=== PATIENT | female | born 1925 | race Caucasian/White ===

== ENCOUNTER 2016-09-03 16:46 | Inpatient (IN) | payer OTHER ==
[~2016-09-03] VITALS: Ht 149.9 cm; Wt 37.2 kg
[~2016-09-03 16:46] MED LIST: ANT12.5 PO; CALCIUM-600600 MG PO; COL100 PO; CROMOLYN SODIUM10 ML OP; DEC150 PO; ECO81 PO; FLUTICASON0.05 MG/Ac; KEFLEX500 MG PO; LAC PO; OMEPRAZOLE40 M1 PO; OSCD PO; PRI20 PO; PROAIR HFA0.09 MG/A1 INH; RISEDRONATE SO150 MG PO; SOD1 PO; SYMBICORT1 AE2 INH; TRA50 PO; TRAMADOL50 M1 PO; VENLAFAXINE HYD75 M1 PO
[2016-09-03 17:20] LABS: BASOPHIL % 0.4 % (0-2); PLATELET COUNT 392 x10^3mcL (130-400)
[2016-09-03 17:21] LABS: RED CELL DISTRIBUTION WIDTH 15.5 % (11.5-14.5)
[2016-09-03 17:26] LABS: CALCIUM 8.1 mg/dL (8.5-10.1); CARBON DIOXIDE 30.4 mmol/L (21-32); CHLORIDE SERUM 95 mmol/L (98-107); CREATININE SERUM 0.8 mg/dL (0.6-1.0); GLUCOSE SERUM 122 mg/dL (74-106); SODIUM SERUM 132 mmol/L (136-145)
[2016-09-03 17:33] LABS: ALBUMIN 3.3 g/dL (3.4-5.0); ALKALINE PHOSPHATASE 126 U/L (46-116); ALT/SGPT 77 U/L (14-59); AST/SGOT 121 U/L (15-37); BILIRUBIN TOTAL 0.4 mg/dL (0.20-1.00); TOTAL PROTEIN, SERUM 6.6 g/dL (6.4-8.2)
[2016-09-03] MEDS ORDERED: LASIX20 MG (17:37)
[2016-09-03] MEDS ORDERED: MIRTAZAPINE15 M2 (17:38)
[2016-09-03] MEDS ORDERED: CARVEDILOL3.125 M1 (17:38)
[2016-09-03] MEDS ORDERED: EFFEXOR-XR37.5 MG (17:38)
[2016-09-03 18:13] LABS: HDL CHOLESTEROL 35 mg/dL (40-60)
[2016-09-03 18:15] LABS: CHOLESTEROL 86 mg/dL (<200)
[2016-09-03 18:32] LABS: UA SPECIFIC GRAVITY 1.015 (1.005-1.035); microscopic required? YES; urine erythrocyte 2+ (NEGATIVE)
[2016-09-03 19:30] LABS: MAGNESIUM 2.2 mg/dL (1.8-2.4); PHOSPHOROUS 3.7 mg/dL (2.5-4.9)
[2016-09-03 19:34] LABS: CHOLESTEROL/HDL RATIO 2.5
[2016-09-03 19:44] LABS: FREE T4 1.21 ng/dL (0.76-1.46); FREE THYROXINE INDEX 3.6 ug/dL (1.4-4.5); T4(THYROXINE) 9.6 ug/dL (4.7-13.3)
[2016-09-03 19:58] LABS: T3 TOTAL 0.97 ng/mL
[2016-09-03 20:07] VITALS: BP 132/74
[2016-09-03 20:10] VITALS: Ht 149.9 cm; Wt 37.2 kg
[2016-09-04] VITALS (7 sets, daily range): BP systolic 110–132; BP diastolic 54–74
[2016-09-04 06:31] LABS: BASOPHIL % 0.6 % (0-2); PLATELET COUNT 352 x10^3mcL (130-400)
[2016-09-04 06:36] LABS: RED CELL DISTRIBUTION WIDTH 15.6 % (11.5-14.5)
[2016-09-04 07:11] LABS: CALCIUM 8.3 mg/dL (8.5-10.1); CARBON DIOXIDE 31.4 mmol/L (21-32); CHLORIDE SERUM 99 mmol/L (98-107); CREATININE SERUM 0.7 mg/dL (0.6-1.0); GLUCOSE SERUM 87 mg/dL (74-106); MAGNESIUM 2.2 mg/dL (1.8-2.4); PHOSPHOROUS 4.2 mg/dL (2.5-4.9); POTASSIUM SERUM 4.8 mmol/L (3.5-5.1); SODIUM SERUM 137 mmol/L (136-145)
[2016-09-05] VITALS (10 sets, daily range): BP systolic 114–134; BP diastolic 55–87
[2016-09-05 07:10] LABS: BASOPHIL % 1.1 % (0-2); PLATELET COUNT 373 x10^3mcL (130-400)
[2016-09-05 07:42] LABS: CARBON DIOXIDE 34.7 mmol/L (21-32); CHLORIDE SERUM 98 mmol/L (98-107); CREATININE SERUM 0.7 mg/dL (0.6-1.0); GLUCOSE SERUM 83 mg/dL (74-106); MAGNESIUM 2.2 mg/dL (1.8-2.4); PHOSPHOROUS 3.6 mg/dL (2.5-4.9); POTASSIUM SERUM 4.5 mmol/L (3.5-5.1); SODIUM SERUM 134 mmol/L (136-145)
[2016-09-05 08:30] LABS: RED CELL DISTRIBUTION WIDTH 15.8 % (11.5-14.5)
[2016-09-05 18:15] LABS: SOURCE FLUID THORACENTESIS
[2016-09-06 05:30] VITALS: BP 138/71
[2016-09-06 06:27] LABS: CALCIUM 8.4 mg/dL (8.5-10.1); CARBON DIOXIDE 34.5 mmol/L (21-32); CHLORIDE SERUM 97 mmol/L (98-107); CREATININE SERUM 0.7 mg/dL (0.6-1.0); GLUCOSE SERUM 83 mg/dL (74-106); MAGNESIUM 2.2 mg/dL (1.8-2.4); PHOSPHOROUS 3.5 mg/dL (2.5-4.9); POTASSIUM SERUM 4.5 mmol/L (3.5-5.1); SODIUM SERUM 133 mmol/L (136-145)
[2016-09-06 06:35] LABS: TOTAL IRON BINDING CAPACITY 289 ug/dL (250-450)
[2016-09-06 06:41] LABS: IRON 33 ug/dL (50-170)
[2016-09-06 06:49] LABS: BASOPHIL % 0.9 % (0-2); RED BLOOD CELLS 4.19 M/mm3 (4.10-5.10)
[2016-09-06 08:13] LABS: RED CELL DISTRIBUTION WIDTH 15.8 % (11.5-14.5)
[2016-09-06 08:14] LABS: PLATELET COUNT 408 x10^3mcL (130-400)
[2016-09-06 09:53] VITALS: BP 116/51
[2016-09-06] MEDS ORDERED: ECO81 PO (10:30)
[2016-09-06] MEDS ORDERED: CARVEDILOL3.125 M1 PO (10:30)
[2016-09-06] MEDS ORDERED: LAC PO (10:31)
[2016-09-06] MEDS ORDERED: CIPRO250 MG PO (10:31)
[2016-09-06] MEDS ORDERED: FUROSEMIDE40 MG PO (10:32)
[2016-09-06] MEDS ORDERED: KLOR-CON M1010 MEQ PO (10:43)
[2016-09-06] MEDS ORDERED: TRAMADOL HCL50 MG (11:33)
[2016-09-06 12:09] VITALS: BP 116/51
[2016-09-06 13:50] VITALS: BP 101/44
[2016-09-07 11:03] LABS: TRANSFERRIN 231 mg/dL (200-370)
== END 2016-09-06 16:26 | disposition home or self-care (01) | DRG 291 ==
LOC: ED 16:46 → DU 18:47
PROVIDERS: Emergency Medicine; Family Medicine; ADMIT Family Medicine
PROC: 0W993ZZ Drainage of Right Pleural Cavity, Percutaneous Approach (ICD-10-PCS; principal; 2016-09-04)
DX: I50.43 Acute on chronic combined systolic (congestive) and diastolic (congestive) heart failure (principal); N17.0 Acute kidney failure with tubular necrosis; N39.0 Urinary tract infection, site not specified; E87.1 Hypo-osmolality and hyponatremia; E44.0 Moderate protein-calorie malnutrition; Z68.1 Body mass index [BMI] 19.9 or less, adult; I42.9 Cardiomyopathy, unspecified; J90 Pleural effusion, not elsewhere classified; R80.8 Other proteinuria; D47.3 Essential (hemorrhagic) thrombocythemia; I27.2 Other secondary pulmonary hypertension; R73.03 Prediabetes; I07.1 Rheumatic tricuspid insufficiency; E87.8 Other disorders of electrolyte and fluid balance, not elsewhere classified; D64.9 Anemia, unspecified; J45.909 Unspecified asthma, uncomplicated; Z66 Do not resuscitate; Z79.82 Long term (current) use of aspirin; M81.0 Age-related osteoporosis without current pathological fracture; Z86.73 Personal history of transient ischemic attack (TIA), and cerebral infarction without residual deficits
CPT/HCPCS: 32555; 82962; 83880; 84439; 88344; C1729; G0480; J0696; J1940; J7030; J7613; J7626; Q0092

== ENCOUNTER 2016-09-19 16:05 | Emergency (ER) | payer OTHER ==
[~2016-09-19] VITALS: Ht 132.1 cm; Wt 34.0 kg
[~2016-09-19 16:05] MED LIST changes: +CARVEDILOL3.125 M1; +CARVEDILOL3.125 M1 PO; +CIPRO250 MG PO; +EFFEXOR-XR37.5 MG; +FUROSEMIDE40 MG PO; +KLOR-CON M1010 MEQ PO; +LASIX20 MG; +MIRTAZAPINE15 M2; +TRAMADOL HCL50 MG
[2016-09-19 23:26] VITALS: BP 117/65
== END 2016-09-19 23:26 | disposition home or self-care (01) ==
LOC: ED 16:05
DX: S01.111A Laceration without foreign body of right eyelid and periocular area, initial encounter (principal); S51.811A Laceration without foreign body of right forearm, initial encounter; S51.812A Laceration without foreign body of left forearm, initial encounter; I10 Essential (primary) hypertension; W17.89XA Other fall from one level to another, initial encounter; Y93.89 Activity, other specified; Y92.89 Other specified places as the place of occurrence of the external cause; Y99.8 Other external cause status

== ENCOUNTER 2016-12-01 10:46 | Inpatient (IN) | payer OTHER ==
[~2016-12-01] VITALS: Ht 149.9 cm; Wt 35.1 kg
[2016-12-01 11:14] LABS: BASOPHIL % 0.9 % (0-2)
[2016-12-01 11:16] LABS: PLATELET COUNT 453 x10^3mcL (130-400); RED CELL DISTRIBUTION WIDTH 15.6 % (11.5-14.5)
--- NOTE | 2016-12-01 11:18 | NUR ---
PT WAS BROUGHT IN BY AMBULANCE W/CC OF SOB X2 DAYS. PT SPEAKING IN CLEAR FULL SENTENCES. NO NEUROLOGICAL DEFICITS NOTED. RESPS E/U. CLEAR LUNG CHERRY AUSCULTATED. COMFORT MEASURES IMPLEMENTED. CALL LIGHT W/IN REACH. PT AWAITING MSE. WILL CONTINUE TO MONITOR.
[2016-12-01 11:28] LABS: ALKALINE PHOSPHATASE 86 U/L (46-116); ALT/SGPT 21 U/L (14-59); AST/SGOT 28 U/L (15-37); BILIRUBIN TOTAL 0.33 mg/dL (0.20-1.00); CALCIUM 8.8 mg/dL (8.5-10.1); CARBON DIOXIDE 28.3 mmol/L (21-32); CHLORIDE SERUM 88 mmol/L (98-107); CREATININE SERUM 0.8 mg/dL (0.6-1.0); GLUCOSE SERUM 88 mg/dL (74-106); POTASSIUM SERUM 4.5 mmol/L (3.5-5.1); TOTAL PROTEIN, SERUM 7.7 g/dL (6.4-8.2)
[2016-12-01 11:31] LABS: ALBUMIN 3.2 g/dL (3.4-5.0)
[2016-12-01 11:32] LABS: SODIUM SERUM 123 mmol/L (136-145)
--- NOTE | 2016-12-01 12:09 | NUR ---
1L OF NS AT 150ML/HR INFUSING VIA IV S/P CRITICAL RESULT OF SODIUM LEVEL 123. DR. RINCON MADE AWARE. DR. RINCON GAVE VERBAL ORDER. PT STILL AWAITING MSE.
[2016-12-01 13:51] LABS: LIPASE 663 IU/L (73-393)
[2016-12-01 13:52] LABS: AMYLASE 137 U/L (25-115)
--- NOTE | 2016-12-01 13:53 | NUR ---
DR. ANN AT BEDSIDE FOR MSE.
--- NOTE | 2016-12-01 13:58 | NUR ---
PT MEDICATED PER MD ORDERS, FAMILY AT BEDSIDE,
--- NOTE | 2016-12-01 15:20 | NUR ---
PT TAKEN TO CT VIA SLIM BY DARRYL, PT IN NO DISTRESS
--- NOTE | 2016-12-01 16:16 | NUR ---
PT RESTING IN POSITION OF COMFORT. RESPS E/U. NO S/S OF DISTRESS NOTED. IV SITE PATENT. NO S/S OF INFECTION NOTED. PT DENIES PAIN OR DISCOMFORT TO SITE. WILL CONTINUE TO MONITOR.
--- NOTE | 2016-12-01 17:28 | NUR ---
REPORT GIVEN TO ALEX SIFUENTES FOR CONTINUATION OF CARE PRIMARY RN.
[2016-12-01 18:06] LABS: UA SPECIFIC GRAVITY <=1.005 (1.005-1.035); microscopic required? YES; urine erythrocyte TRACE (NEGATIVE)
--- NOTE | 2016-12-01 18:10 | NUR ---
RECEIVED PT FROM [facility] [employer], CAME IN DUE TO SOB X2 DAYS. AAOX4. C/O MILD SOB. LUNG SOUNDS DIMINISHED ON AUSCULTATION. DENIES CHEST PAIN/PRESSURE, W/ LEFT UPPER CHEST PACEMAKER. DENIES ABDOMINAL DISCOMFORT. BOWEL SOUDNS ACTIVE. W/ DARK DISCOLORATION ON BUE AND BLE. GENERALIZED WEAKNESS. DAUGHTER AT BEDSIDE. SIDE RAILS UPX2. CALL LIGHT ON REACH. PRIMARY NURSE BEAR AT BEDSIDE FOR CONTINUITY OF CARE
--- NOTE | 2016-12-01 18:10 | NUR ---
PT TRANSFERED VIA GURNEY ACCOMPANIED BY NURSE AND EMT. STILL CLEANER ATTACHED. VSS. RESPS E/U. NO S/S OF DISTRESS NOTED. IV SITE PATENT. NO S/S OF INFECTION OR INFILTRATION NOTED.
--- NOTE | 2016-12-01 18:25 | NUR ---
SPOKE W/ DR MCCLENDON OVER PHONE TO GET ADMITTING ORDERS,DR MCCLENDON STATED BACK HE DOESN'T KNOW THIS PT,STATED HE'LL CALL DR DAVIS REGARDING THIS.
[2016-12-01 18:26] VITALS: BP 101/53
[2016-12-01 18:35] VITALS: Ht 149.9 cm; Wt 35.1 kg
--- NOTE | 2016-12-01 18:35 | NUR ---
DR DAVIS CALLED BACK,GAVE ADM.DX,M/S STATUS,IVF,DIET,PHY.THER. ORDER,2 PRN MEDS AND HANG UP. TO ENDORSE TO NOC NURSE.
--- NOTE | 2016-12-01 20:00 | NUR ---
RECEIVED PT IN BED, ALERT AND ORIENTED. ABLE TO VERBALIZE NEEDS. DENIES HEADACHE/DIZZINESS. RESP. EVEN AND UNLABORED. ON ROOM AIR, NO DISTRESS NOTED. NO TELE, DENIES CHEST PAIN OR ANY DISCOMFORT. AFEBRILE AND VITAL SIGNS STABLE. IVF, NS AT 85ML/HR, INTACT AND INFUSING VIA RAC, SITE CLEAR. WITH GEN. WEAKNESS, ABLE TO TURN AND REPOSITION SELF IN BED. ABD. SOFT, NON DISTENDED, BS ACTIVE, NO N/V NOTED. ASSISTED WITH HS CARE. CALL LIGHT WITHIN REACH. WILL CONTINUE TO MONITOR.
[2016-12-01] MEDS ORDERED: CEL100 PO (20:05)
[2016-12-01 20:51] VITALS: BP 125/69
--- NOTE | 2016-12-02 00:32 | NUR ---
DAUGHTER AT BEDSIDE, SUPPORTIVE. PT APPEARS ASLEEP, WITH EYES CLOSED. EASILY AROUSABLE. NO RESP. DISTRESS NOTED. WILL CONTINUE TO MONITOR.
[2016-12-02 05:27] VITALS: BP 111/54
--- NOTE | 2016-12-02 06:11 | NUR ---
SLEPT MOST OF THE NIGHT. NO COMPLAINTS NOTED AT THIS TIME. AFEBRILE AND VITAL SIGNS STABLE. DENIES PAIN OR ANY DISCOMFORT AT THIS TIME. IVF INTACT AND INFUSING WELL, SITE CLEAR. VOIDING FREELY VIA BEDPAN. KEPT COMFORTABLE. RESP. EVEN AND UNLABORED. NO DISTRESS NOTED. WILL ENDORSE TO INCOMING NURSE.
[2016-12-02 06:32] LABS: BASOPHIL % 1.1 % (0-2); PLATELET COUNT 365 x10^3mcL (130-400)
[2016-12-02 06:42] LABS: ALKALINE PHOSPHATASE 67 U/L (46-116); ALT/SGPT 14 U/L (14-59); AMYLASE 99 U/L (25-115); AST/SGOT 31 U/L (15-37); BILIRUBIN TOTAL 0.32 mg/dL (0.20-1.00); CALCIUM 8.2 mg/dL (8.5-10.1); CARBON DIOXIDE 24.5 mmol/L (21-32); CHLORIDE SERUM 98 mmol/L (98-107); CREATININE SERUM 0.8 mg/dL (0.6-1.0); GLUCOSE SERUM 75 mg/dL (74-106); LIPASE 416 IU/L (73-393); POTASSIUM SERUM 4.7 mmol/L (3.5-5.1); SODIUM SERUM 130 mmol/L (136-145); TOTAL PROTEIN, SERUM 6.7 g/dL (6.4-8.2)
[2016-12-02 06:46] LABS: ALBUMIN 2.7 g/dL (3.4-5.0)
[2016-12-02 06:52] LABS: RED CELL DISTRIBUTION WIDTH 15.8 % (11.5-14.5)
--- NOTE | 2016-12-02 07:10 | NUR ---
PT IN BED. SLEEPING. EFFORTLESS BREATHING. ON 2LNC. IV INFUSING WELL TO RAC #20 NS AT 85ML/HR. DAUGHTER AT BEDSIDE. BED IN LOWEST POSITION, CALL LIGHT WITHIN REACH.
[2016-12-02 09:11] VITALS: BP 106/58
--- NOTE | 2016-12-02 09:50 | NUR ---
PT UP OUT OF BED. SAT IN BEDSIDE CHAIR.
--- NOTE | 2016-12-02 10:20 | NUR ---
PT AMBULATING HALLWAYS WITH FWW WITH PHYSICAL THERAPY. TOLERATING WELL. NO DISTRESS NOTED.
--- NOTE | 2016-12-02 12:45 | NUR ---
PT EATING CLEAR LIQUIDS FOR LUNCH. TOLERATING WELL. DENIES PAIN AT MOMENT. DENIES SOB, O2SAT: 98 ON ROOM AIR. CALL LIGHT WITHIN REACH. FAMILY AT BEDSIDE.
[2016-12-02 15:59] VITALS: BP 122/62
--- NOTE | 2016-12-02 16:35 | NUR ---
DISCHARGE INSTRUCTIONS GIVEN TO SON AND PATIENT. PT AND SON VERBALIZED UNDERSTANDING FOR STOPPING DIURETICS PER DR. DAVIS ORDER AND FOLLOW UP APPOINTMENT INSTRUCTIONS WITH PCP. IV DC'D PT TOLERATED WELL, CATHETERS INTACT. NO PHLEBITIS NOTED. PT ESCORTED OUT OF UNIT SAFELY VIA WHEELCHAIR.
== END 2016-12-02 16:30 | disposition home or self-care (01) | DRG 641 ==
LOC: ED 10:46 → MU 16:36
PROVIDERS: Emergency Medicine; ADMIT Internal Medicine Pulmonary Disease
DX: E86.0 Dehydration (principal); Z68.1 Body mass index [BMI] 19.9 or less, adult; J44.9 Chronic obstructive pulmonary disease, unspecified; I50.9 Heart failure, unspecified; G62.9 Polyneuropathy, unspecified; Z86.711 Personal history of pulmonary embolism; Z86.73 Personal history of transient ischemic attack (TIA), and cerebral infarction without residual deficits; Z79.82 Long term (current) use of aspirin
CPT/HCPCS: 82962; 83880; 97110-GP; J1170; J2405; J7030; Q0092; Q9967

== ENCOUNTER 2016-12-22 17:53 | Inpatient (IN) | payer OTHER ==
[~2016-12-22] VITALS: Ht 152.4 cm; Wt 35.8 kg
[~2016-12-22 17:53] MED LIST changes: +CEL100 PO; -EFFEXOR-XR37.5 MG; +EFFEXOR-XR37.5 MG PO; -MIRTAZAPINE15 M2; +MIRTAZAPINE15 M2 PO; -TRAMADOL HCL50 MG; +TRAMADOL HCL50 MG PO
[2016-12-22 19:16] LABS: BASOPHIL % 0.9 % (0-2); PLATELET COUNT 289 x10^3mcL (130-400)
[2016-12-22 19:24] LABS: RED CELL DISTRIBUTION WIDTH 15.4 % (11.5-14.5)
[2016-12-22 19:44] LABS: ALBUMIN 3.4 g/dL (3.4-5.0); ALKALINE PHOSPHATASE 81 U/L (46-116); ALT/SGPT 20 U/L (14-59); AMYLASE 109 U/L (25-115); AST/SGOT 38 U/L (15-37); BILIRUBIN TOTAL 0.36 mg/dL (0.20-1.00); CALCIUM 7.9 mg/dL (8.5-10.1); CARBON DIOXIDE 27.3 mmol/L (21-32); CHLORIDE SERUM 79 mmol/L (98-107); CREATININE SERUM 0.4 mg/dL (0.6-1.0); GLUCOSE SERUM 99 mg/dL (74-106); HDL CHOLESTEROL 54 mg/dL (40-60); LIPASE 331 IU/L (73-393); POTASSIUM SERUM 4.6 mmol/L (3.5-5.1); T4(THYROXINE) 9.4 ug/dL (4.7-13.3); TOTAL PROTEIN, SERUM 7.2 g/dL (6.4-8.2); URIC ACID 1.9 mg/dL (2.6-6.0)
[2016-12-22 19:45] LABS: CHOLESTEROL 120 mg/dL (<200)
[2016-12-22 19:46] LABS: SODIUM SERUM 110 mmol/L (136-145)
[2016-12-22 19:51] LABS: microscopic required? YES; urine erythrocyte 2+ (NEGATIVE)
[2016-12-22 20:02] LABS: AMPHETAMINE QUAL UR NONE DETECTED (NEG <=1000)
[2016-12-22] MEDS ORDERED: CROMOLYN SODIUM10 ML OU (20:20)
[2016-12-22] MEDS ORDERED: ALLERGY RELIE15.8 ML NS (20:20)
[2016-12-22] MEDS ORDERED: PANTOPRAZOLE SO40 M1 PO (20:20)
[2016-12-22] MEDS ORDERED: ZESTRIL5 MG PO (20:21)
[2016-12-22] MEDS ORDERED: ACTONEL5 MG PO (20:22)
[2016-12-22] MEDS ORDERED: SMZ TMP PO (20:22)
[2016-12-22 21:46] VITALS: BP 136/70
[2016-12-22 21:59] VITALS: BP 136/77
[2016-12-23 01:13] LABS: ALBUMIN 2.9 g/dL (3.4-5.0); ALKALINE PHOSPHATASE 72 U/L (46-116); ALT/SGPT 26 U/L (14-59); AST/SGOT 35 U/L (15-37); BILIRUBIN TOTAL 0.29 mg/dL (0.20-1.00); CALCIUM 7.8 mg/dL (8.5-10.1); CARBON DIOXIDE 29.3 mmol/L (21-32); CHLORIDE SERUM 83 mmol/L (98-107); CREATININE SERUM 0.5 mg/dL (0.6-1.0); GLUCOSE SERUM 103 mg/dL (74-106); POTASSIUM SERUM 4.9 mmol/L (3.5-5.1); TOTAL PROTEIN, SERUM 6.2 g/dL (6.4-8.2)
[2016-12-23 01:15] LABS: SODIUM SERUM 113 mmol/L (136-145)
[2016-12-23 05:20] LABS: ALKALINE PHOSPHATASE 75 U/L (46-116); ALT/SGPT 16 U/L (14-59); AST/SGOT 33 U/L (15-37); BILIRUBIN TOTAL 0.2 mg/dL (0.20-1.00); CALCIUM 7.8 mg/dL (8.5-10.1); CARBON DIOXIDE 31.7 mmol/L (21-32); CHLORIDE SERUM 83 mmol/L (98-107); CREATININE SERUM 0.6 mg/dL (0.6-1.0); GLUCOSE SERUM 84 mg/dL (74-106); POTASSIUM SERUM 4.8 mmol/L (3.5-5.1); TOTAL PROTEIN, SERUM 6.2 g/dL (6.4-8.2)
[2016-12-23 05:24] LABS: ALBUMIN 2.9 g/dL (3.4-5.0)
[2016-12-23 05:25] LABS: SODIUM SERUM 112 mmol/L (136-145)
[2016-12-23 06:14] VITALS: BP 116/59
[2016-12-23 06:28] LABS: BASOPHIL % 0.3 % (0-2); PLATELET COUNT 266 x10^3mcL (130-400)
[2016-12-23 06:36] LABS: RED CELL DISTRIBUTION WIDTH 15.3 % (11.5-14.5)
[2016-12-23 07:40] LABS: ALKALINE PHOSPHATASE 65 U/L (46-116); ALT/SGPT 17 U/L (14-59); AST/SGOT 31 U/L (15-37); BILIRUBIN TOTAL 0.24 mg/dL (0.20-1.00); CALCIUM 7.6 mg/dL (8.5-10.1); CARBON DIOXIDE 26.6 mmol/L (21-32); CHLORIDE SERUM 86 mmol/L (98-107); CREATININE SERUM 0.5 mg/dL (0.6-1.0); GLUCOSE SERUM 74 mg/dL (74-106); POTASSIUM SERUM 4.6 mmol/L (3.5-5.1)
[2016-12-23 07:43] LABS: ALBUMIN 2.6 g/dL (3.4-5.0); TOTAL PROTEIN, SERUM 5.7 g/dL (6.4-8.2)
[2016-12-23 07:44] LABS: SODIUM SERUM 115 mmol/L (136-145)
[2016-12-23 10:22] VITALS: BP 93/49
[2016-12-23 10:30] VITALS: BP 106/56
[2016-12-23 12:12] LABS: ALKALINE PHOSPHATASE 73 U/L (46-116); ALT/SGPT 17 U/L (14-59); AST/SGOT 34 U/L (15-37); BILIRUBIN TOTAL 0.21 mg/dL (0.20-1.00); CALCIUM 7.7 mg/dL (8.5-10.1); CARBON DIOXIDE 25.2 mmol/L (21-32); CHLORIDE SERUM 87 mmol/L (98-107); CREATININE SERUM 0.5 mg/dL (0.6-1.0); GLUCOSE SERUM 85 mg/dL (74-106); POTASSIUM SERUM 4.9 mmol/L (3.5-5.1)
[2016-12-23 12:24] LABS: ALBUMIN 2.8 g/dL (3.4-5.0); SODIUM SERUM 115 mmol/L (136-145); TOTAL PROTEIN, SERUM 5.9 g/dL (6.4-8.2)
[2016-12-23 15:38] LABS: CALCIUM 7.7 mg/dL (8.5-10.1); CARBON DIOXIDE 27.1 mmol/L (21-32); CHLORIDE SERUM 87 mmol/L (98-107); CREATININE SERUM 0.6 mg/dL (0.6-1.0); GLUCOSE SERUM 113 mg/dL (74-106); POTASSIUM SERUM 4.2 mmol/L (3.5-5.1)
[2016-12-23 15:40] LABS: SODIUM SERUM 116 mmol/L (136-145)
[2016-12-23 17:00] VITALS: BP 108/60
[2016-12-23 18:19] VITALS: BP 99/44
[2016-12-23 19:51] LABS: CALCIUM 8.1 mg/dL (8.5-10.1); CARBON DIOXIDE 24.3 mmol/L (21-32); CHLORIDE SERUM 91 mmol/L (98-107); CREATININE SERUM 0.6 mg/dL (0.6-1.0); GLUCOSE SERUM 98 mg/dL (74-106); POTASSIUM SERUM 4.2 mmol/L (3.5-5.1)
[2016-12-23 19:55] LABS: SODIUM SERUM 121 mmol/L (136-145)
[2016-12-23 21:00] VITALS: BP 113/54
[2016-12-24 00:27] LABS: CALCIUM 7.7 mg/dL (8.5-10.1); CARBON DIOXIDE 26.4 mmol/L (21-32); CHLORIDE SERUM 93 mmol/L (98-107); CREATININE SERUM 0.5 mg/dL (0.6-1.0); GLUCOSE SERUM 89 mg/dL (74-106); POTASSIUM SERUM 4.5 mmol/L (3.5-5.1)
[2016-12-24 00:29] LABS: SODIUM SERUM 121 mmol/L (136-145)
[2016-12-24 03:15] LABS: CALCIUM 7.5 mg/dL (8.5-10.1); CARBON DIOXIDE 25.2 mmol/L (21-32); CHLORIDE SERUM 92 mmol/L (98-107); CREATININE SERUM 0.5 mg/dL (0.6-1.0); GLUCOSE SERUM 81 mg/dL (74-106); POTASSIUM SERUM 4.7 mmol/L (3.5-5.1)
[2016-12-24 03:18] LABS: SODIUM SERUM 124 mmol/L (136-145)
[2016-12-24 05:39] VITALS: BP 110/55
[2016-12-24 07:01] LABS: CALCIUM 7.6 mg/dL (8.5-10.1); CARBON DIOXIDE 27.2 mmol/L (21-32); CHLORIDE SERUM 94 mmol/L (98-107); CREATININE SERUM 0.6 mg/dL (0.6-1.0); GLUCOSE SERUM 77 mg/dL (74-106); MAGNESIUM 1.9 mg/dL (1.8-2.4); POTASSIUM SERUM 4.5 mmol/L (3.5-5.1)
[2016-12-24 07:07] LABS: SODIUM SERUM 123 mmol/L (136-145)
[2016-12-24 07:25] LABS: BASOPHIL % 0.6 % (0-2); PLATELET COUNT 227 x10^3mcL (130-400)
[2016-12-24 07:30] LABS: RED CELL DISTRIBUTION WIDTH 15.5 % (11.5-14.5)
[2016-12-24 09:04] VITALS: BP 143/73
[2016-12-24 12:58] VITALS: BP 109/50
[2016-12-24 13:34] VITALS: BP 109/50
== END 2016-12-24 14:21 | disposition home health service (06) | DRG 641 ==
LOC: ED 17:53 → DU 20:26
PROVIDERS: Emergency Medicine; Internal Medicine; ADMIT Internal Medicine Pulmonary Disease
DX: E87.1 Hypo-osmolality and hyponatremia (principal); I10 Essential (primary) hypertension; M41.9 Scoliosis, unspecified; Z95.0 Presence of cardiac pacemaker; F03.90 Unspecified dementia, unspecified severity, without behavioral disturbance, psychotic disturbance, mood disturbance, and anxiety; M89.8X4 Other specified disorders of bone, hand
CPT/HCPCS: 83880; 90715; 97110-GP; 97116-GP; 97530-GP; J1650; J2405; J3490; J7030; J7040